=== PATIENT | male | born 1950 | race Two or more races ===

== ENCOUNTER 2019-12-23 17:07 | Inpatient (IN) | payer OTHER ==
[~2019-12-23 17:07] MED LIST: CRESTOR20 MG; [UNRECOGNIZED DRUG - OTHER]
[2020-01-05] MEDS ORDERED: HYOSCYAMINE0.125 M1 SL (08:21)
[2020-01-05] MEDS ORDERED: FAMOTIDINE20 MG PO (08:21)
[2020-01-05] MEDS ORDERED: OXYC1TAB9 PO (08:21)
[2020-01-05] MEDS ORDERED: Neurin-Sl Tablet Sl SL (08:21)
[2020-01-05] MEDS ORDERED: INTESTINEX680 M1 PO (08:22)
[2020-01-05] MEDS ORDERED: PYRIDOXINE HCL100 MG PO (08:22)
[2020-01-05] MEDS ORDERED: IRON 100 PLUS1 EACH PO (08:22)
== END 2020-01-05 18:47 | disposition home or self-care (01) | DRG 329 ==
LOC: SURG 17:07
PROVIDERS: ADMIT Surgery; ATTEND Surgery
PROC: B246ZZZ Ultrasonography of Right and Left Heart (ICD-10-PCS; 2019-12-24)
PROC: 30233N1 Transfusion of Nonautologous Red Blood Cells into Peripheral Vein, Percutaneous Approach (ICD-10-PCS; 2019-12-26)
PROC: 07TB4ZZ Resection of Mesenteric Lymphatic, Percutaneous Endoscopic Approach (ICD-10-PCS; 2019-12-27)
PROC: 0DBK4ZZ Excision of Ascending Colon, Percutaneous Endoscopic Approach (ICD-10-PCS; principal; 2019-12-27 11:00)
PROC: 02HV33Z Insertion of Infusion Device into Superior Vena Cava, Percutaneous Approach (ICD-10-PCS; 2019-12-30)
PROC: 4A12X4Z Monitoring of Cardiac Electrical Activity, External Approach (ICD-10-PCS; 2019-12-30)
PROC: 3E0F7GC Introduction of Other Therapeutic Substance into Respiratory Tract, Via Natural or Artificial Opening (ICD-10-PCS; 2019-12-30)
DX: C18.2 Malignant neoplasm of ascending colon (principal); A41.9 Sepsis, unspecified organism; D62 Acute posthemorrhagic anemia; K92.2 Gastrointestinal hemorrhage, unspecified; K91.89 Other postprocedural complications and disorders of digestive system; K56.7 Ileus, unspecified; L03.311 Cellulitis of abdominal wall; T81.41XA Infection following a procedure, superficial incisional surgical site, initial encounter; T81.44XA Sepsis following a procedure, initial encounter; J90 Pleural effusion, not elsewhere classified; R65.10 Systemic inflammatory response syndrome (SIRS) of non-infectious origin without acute organ dysfunction; K63.89 Other specified diseases of intestine; I10 Essential (primary) hypertension; F10.10 Alcohol abuse, uncomplicated; E78.2 Mixed hyperlipidemia; R59.0 Localized enlarged lymph nodes; L80 Vitiligo; Z20.828 Contact with and (suspected) exposure to other viral communicable diseases

== ENCOUNTER 2022-07-19 07:29 | Outpatient (CLI) | payer OTHER ==
[~2022-07-19 07:29] MED LIST changes: +FAMOTIDINE20 MG PO; +HYOSCYAMINE0.125 M1 SL; +INTESTINEX680 M1 PO; +IRON 100 PLUS1 EACH PO; +Neurin-Sl Tablet Sl SL; +OXYC1TAB9 PO; +PYRIDOXINE HCL100 MG PO
== END 2022-07-19 07:30 | disposition home or self-care (01) ==
LOC: NUCLEAR 07:29
PROVIDERS: ATTEND Internal Medicine
DX: I25.118 Atherosclerotic heart disease of native coronary artery with other forms of angina pectoris (principal); I11.9 Hypertensive heart disease without heart failure; R06.9 Unspecified abnormalities of breathing
CPT/HCPCS: 78452; 93017; A9500; J0153

== ENCOUNTER 2025-01-03 09:10 | Outpatient (CLI) | payer OTHER | END 2025-01-03 09:13 | disposition home or self-care (01) | LOC: NUCLEAR 09:10 | PROVIDERS: ATTEND Internal Medicine | DX: I82.409 Acute embolism and thrombosis of unspecified deep veins of unspecified lower extremity (principal); I87.2 Venous insufficiency (chronic) (peripheral) ==